=== PATIENT | male | born 2000 | race Caucasian/White ===

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

== ENCOUNTER 2023-05-22 11:15 | Outpatient (RCR) | payer OTHER, MEDICAID, SELFPAY ==
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
== END 2023-06-06 13:59 | disposition home or self-care (01) ==
LOC: SP 11:15
PROVIDERS: Family Provider Family Medicine; PCP Family Medicine; Referring Provider Physical Medicine & Rehabilitation Brain Injury Medicine; Visit Provider Physical Medicine & Rehabilitation Brain Injury Medicine
DX: G31.89 Other specified degenerative diseases of nervous system (principal); F09 Unspecified mental disorder due to known physiological condition; S06.9XAS Unspecified intracranial injury with loss of consciousness status unknown, sequela; S06.30AD Unspecified focal traumatic brain injury with loss of consciousness status unknown, subsequent encounter
CPT/HCPCS: 92507; 92523

== ENCOUNTER → 2024-06-21 09:09 | Outpatient (CLI) | payer OTHER, MEDICAID, SELFPAY ==
[2024-06-21 10:13] LABS: Add Manual Diff / Slide Review NO; Basophils Absolute Auto 0 /uL (0-100); Basophils Percent Auto 0.3 % (0-2); Eosinophils Absolute Auto 100 /uL (0-450); Eosinophils Percent Auto 2.5 % (2-4); Hematocrit 44.6 % (41-53); Hemoglobin 14.7 g/dL (13.5-17.5); Lymphocytes Absolute Auto 1500 /uL (1100-4500); Lymphocytes Percent Auto 30.3 % (25-40); Mean Corpuscular Hemoglobin 26.1 PG (26-34); Mean Corpuscular Volume 79.2 fL (80-100); Monocytes Absolute Auto 400 /uL (0-900); Monocytes Percent Auto 7.6 % (3-14); Neutrophils Absolute Auto 3000 /uL (1500-7000); Neutrophils Percent Auto 59.3 % (50-75); Platelet Count 189 X10^3/uL (150-400); Red Blood Cell Count 5.63 X10^6/uL (4.5-5.9); Red Cell Distribution Width 16.3 % (11.6-14.8)
[2024-06-21 10:31] LABS: Alanine Aminotransferase 90 IU/L (<50); Albumin 4.7 g/dL (3.5-5.0); Albumin Globulin Ratio 1.9 (1.0-2.8); Alkaline Phosphatase 74 U/L (38-126); Aspartate Aminotransferase 56 IU/L (17-59); Bilirubin Total 0.8 mg/dL (0.2-1.3); Blood Urea Nitrogen 15 mg/dL (9-20); Calcium 9.5 mg/dL (8.4-10.2); Carbon Dioxide 25 mmol/L (22-32); Chloride 104 mmol/L (98-107); Estimated Glomerular Filt Rate > 60 mL/min (>60); Globulin 2.5 g/dL (1.7-4.1); Glucose 61 mg/dL (70-100); HEMOLYSIS 21 (0-50); Sodium 139 mmol/L (137-145); Total Protein 7.2 g/dL (6.3-8.2)
== END ==
LOC: LAB 09:10
PROVIDERS: Family Provider Family Medicine; PCP Family Medicine; Referring Provider Family Medicine; Visit Provider Family Medicine
DX: R10.31 Right lower quadrant pain (principal)
CPT/HCPCS: 36415; 80053; 85025

== ENCOUNTER → 2024-08-19 17:16 | Outpatient (CLI) | payer OTHER, SELFPAY ==
--- NOTE | 2024-08-19 17:18 | DI.RAD.S_ITS ---
PROCEDURE: XR KUB INDICATIONS: Lower abdominal pain; dysuria TECHNIQUE: One view of the abdomen acquired. COMPARISON: None. FINDINGS: Stool gas pattern: Normal-no evidence of ileus or obstruction. No free intraperitoneal or extraperitoneal air. No gross evidence of ascites Soft tissues: No abnormal calcifications. No soft tissue masses. Organs: There appears to be mild splenomegaly. 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 Suggest abdominal ultrasound. No acute disease. Dictated by: Enrique Gutiérrez M.D. on 08/20/2024 at 12:00 Approved by: Enrique Gutiérrez M.D. on 08/20/2024 at 12:01
== END ==
PROVIDERS: Family Provider Family Medicine; PCP Family Medicine; Referring Provider Physician Assistant; Visit Provider Physician Assistant
DX: R10.30 Lower abdominal pain, unspecified (principal); R30.0 Dysuria
CPT/HCPCS: 74018

== ENCOUNTER → 2024-08-21 14:18 | Outpatient (CLI) | payer OTHER, SELFPAY ==
--- NOTE | 2024-08-21 14:19 | DI.US.S_ITS ---
PROCEDURE: US ABDOMEN LIMITED INDICATIONS: POSSIBLE SPLENOMEGALY ON XR TECHNIQUE: Real-time focused scanning was performed of the abdomen, with image documentation. COMPARISON: None. FINDINGS: Spleen is enlarged measuring 14.9 x 6.1 x 14.5 cm with a volume of 689 cc. IMPRESSION: Splenomegaly as above. Dictated by: Tom Mcneil M.D. on 08/21/2024 at 19:49 Approved by: Tom Mcneil M.D. on 08/21/2024 at 19:50
== END ==
PROVIDERS: Family Provider Family Medicine; PCP Family Medicine; Referring Provider Physician Assistant; Visit Provider Physician Assistant
DX: R10.12 Left upper quadrant pain (principal); R10.30 Lower abdominal pain, unspecified; R93.5 Abnormal findings on diagnostic imaging of other abdominal regions, including retroperitoneum; R16.1 Splenomegaly, not elsewhere classified; G89.29 Other chronic pain
CPT/HCPCS: 76705

== ENCOUNTER → 2024-08-22 14:01 | Outpatient (CLI) | payer OTHER, SELFPAY ==
[2024-08-22 15:48] LABS: Monotest Negative (Negative)
[2024-08-22 16:09] LABS: Hematocrit 45.8 % (41-53); Hemoglobin 15.4 g/dL (13.5-17.5); Mean Corpuscular HGB Conc 33.7 % (30-36); Mean Corpuscular Hemoglobin 26.9 PG (26-34); Mean Corpuscular Volume 79.7 fL (80-100); Platelet Count 193 X10^3/uL (150-400); Red Blood Cell Count 5.74 X10^6/uL (4.5-5.9); Red Cell Distribution Width 14.6 % (11.6-14.8); White Blood Cell Count 5.6 X10^3/uL (4.5-11.0)
[2024-08-22 16:10] LABS: Appearance Urine UA CLEAR; Bilirubin Urine UA NEGATIVE (NEGATIVE); Color Urine UA YELLOW; Glucose Urine UA NEGATIVE (Negative); Ketones Urine UA NEGATIVE (NEGATIVE); Leukocyte Esterase Urine UA NEGATIVE (NEGATIVE); Nitrite Urine UA NEGATIVE (Negative); Occult Blood Urine UA NEGATIVE (Negative); Protein Urine UA NEGATIVE (Negative); Specific Gravity Urine UA <=1.005 (1.000-1.035); Urobilinogen Urine UA 0.2 E.U./dL (0.2); pH Urine UA 6.5 (4.5-8.0)
[2024-08-22 16:11] LABS: Alanine Aminotransferase 31 IU/L (<50); Albumin 4.9 g/dL (3.5-5.0); Albumin Globulin Ratio 1.8 (1.0-2.8); Alkaline Phosphatase 65 U/L (38-126); Aspartate Aminotransferase 31 IU/L (17-59); Bilirubin Total 0.8 mg/dL (0.2-1.3); Bilirubin Unconjugated 0.5 mg/dL (0.0-1.1); Globulin 2.8 g/dL (1.7-4.1); HEMOLYSIS < 15 (0-50); Total Protein 7.7 g/dL (6.3-8.2)
[2024-08-22 16:30] LABS: Bacteria Urine Occasional (0-1); Culture Indicated Urine Cult Not Indicated; RBC Urine None Seen (0-5/HPF); Squamous Epithelial Cell Urine 0-1 /HPF (0-5/HPF); Urine Volume 10mL (spun); WBC Urine 0-1/HPF (0-5/HPF)
[2024-08-22 17:38] LABS: Neutrophils Absolute Manual 3192 /uL (3000-5900); Total Cells Counted 100
[2024-08-22 17:39] LABS: RBC Morphology Normal Morphology
[2024-08-24 05:08] LABS: Hepatitis A Antibody Total Positive (Negative)
== END ==
LOC: LAB 14:02
PROVIDERS: Family Provider Family Medicine; PCP Family Medicine; Referring Provider Physician Assistant; Visit Provider Physician Assistant
DX: R16.1 Splenomegaly, not elsewhere classified (principal); R30.0 Dysuria
CPT/HCPCS: 36415; 80076; 81001; 85025; 86318; 86645; 86705; 86706; 86708; 87522

== ENCOUNTER → 2024-09-03 10:11 | Outpatient (CLI) | payer OTHER, SELFPAY ==
[2024-09-04 23:36] LABS: Hepatitis A Antibody IgM Negative (Negative)
[2024-09-05 04:08] LABS: Immunoglobulin A 95 mg/dL (90-386); Immunoglobulin M, Quantitative 192 mg/dL (20-172)
== END ==
PROVIDERS: Family Provider Family Medicine; PCP Family Medicine; Referring Provider Physician Assistant; Visit Provider Physician Assistant
DX: R16.1 Splenomegaly, not elsewhere classified (principal); R50.9 Fever, unspecified
CPT/HCPCS: 36415; 82784; 86709

== ENCOUNTER → 2024-09-15 14:21 | Outpatient (CLI) | payer OTHER, SELFPAY ==
[2024-09-15 15:56] LABS: Alanine Aminotransferase 22 IU/L (<50); Alkaline Phosphatase 69 U/L (38-126); Aspartate Aminotransferase 27 IU/L (17-59); BUN Creatinine Ratio 20.2 (6-22); Bilirubin Total 0.5 mg/dL (0.2-1.3); Blood Urea Nitrogen 17 mg/dL (9-20); Calcium 9.6 mg/dL (8.4-10.2); Carbon Dioxide 28 mmol/L (22-32); Chloride 101 mmol/L (98-107); Estimated Glomerular Filt Rate > 60 mL/min (>60); Glucose 84 mg/dL (70-99); HEMOLYSIS < 15 (0-50); Potassium 4.2 mmol/L (3.4-5.1); Sodium 140 mmol/L (137-145)
[2024-09-15 15:58] LABS: Albumin 4.7 g/dL (3.5-5.0); Albumin Globulin Ratio 1.8 (1.0-2.8); Globulin 2.6 g/dL (1.7-4.1); Total Protein 7.3 g/dL (6.3-8.2)
== END ==
PROVIDERS: Family Provider Family Medicine; PCP Family Medicine; Referring Provider Physical Medicine & Rehabilitation Brain Injury Medicine; Visit Provider Physical Medicine & Rehabilitation Brain Injury Medicine
DX: S06.9X9A Unspecified intracranial injury with loss of consciousness of unspecified duration, initial encounter (principal); R74.01 Elevation of levels of liver transaminase levels
CPT/HCPCS: 36415; 80053

== ENCOUNTER 2024-09-15 15:21 | Emergency (ER) | payer OTHER, SELFPAY ==
[2024-09-15] VITALS (12 sets, daily range): BP systolic 91–144; BP diastolic 52–75; PULSE 98–112; RESP 18; TEMP 36.9; O2SAT 97–100; BMI 23.6
[2024-09-15 15:44] LABS: Add Manual Diff / Slide Review NO; Basophils Absolute Auto 100 /uL (0-100); Basophils Percent Auto 0.6 % (0-2); Eosinophils Absolute Auto 100 /uL (0-450); Eosinophils Percent Auto 1.8 % (2-4); Hematocrit 48.4 % (41-53); Hemoglobin 16.7 g/dL (13.5-17.5); Lymphocytes Absolute Auto 1400 /uL (1100-4500); Mean Corpuscular HGB Conc 34.6 % (30-36); Mean Corpuscular Hemoglobin 27.5 PG (26-34); Mean Corpuscular Volume 79.6 fL (80-100); Monocytes Absolute Auto 700 /uL (0-900); Monocytes Percent Auto 8.4 % (3-14); Neutrophils Absolute Auto 5900 /uL (1500-7000); Neutrophils Percent Auto 72.2 % (50-75); Platelet Count 179 X10^3/uL (150-400); Red Blood Cell Count 6.08 X10^6/uL (4.5-5.9); Red Cell Distribution Width 15.2 % (11.6-14.8); White Blood Cell Count 8.1 X10^3/uL (4.5-11.0)
[2024-09-15 15:55] LABS: Alanine Aminotransferase 26 IU/L (<50); Albumin 5.1 g/dL (3.5-5.0); Albumin Globulin Ratio 1.5 (1.0-2.8); Alkaline Phosphatase 67 U/L (38-126); Aspartate Aminotransferase 36 IU/L (17-59); BUN Creatinine Ratio 20.7 (6-22); Bilirubin Total 0.7 mg/dL (0.2-1.3); Blood Urea Nitrogen 18 mg/dL (9-20); Calcium 9.7 mg/dL (8.4-10.2); Carbon Dioxide 30 mmol/L (22-32); Chloride 100 mmol/L (98-107); Estimated Glomerular Filt Rate > 60 mL/min (>60); Globulin 3.5 g/dL (1.7-4.1); Glucose 86 mg/dL (70-99); HEMOLYSIS 47 (0-50); Lipase 40 U/L (23-300); Potassium 4.3 mmol/L (3.4-5.1); Sodium 140 mmol/L (137-145); Total Protein 8.6 g/dL (6.3-8.2)
--- NOTE | 2024-09-15 16:16 | DI.CT.S_ITS ---
PROCEDURE: CT ABDOMEN PELVIS W CON INDICATIONS: pain all over with enlarged spleen TECHNIQUE: After the administration of intravenous contrast, axial sections acquired from the lung bases to the pubic symphysis. Coronal and sagittal reformats were performed. For radiation dose reduction, the following was used: automated exposure control, adjustment of mA and/or kV according to patient size. COMPARISON: [facility], CR, XR KUB, 08/19/2024, 17:20. [facility], US, US ABDOMEN LIMITED, 08/21/2024, 14:37. FINDINGS: Image quality: Diagnostic. Lower Chest: No significant findings. ABDOMEN: Liver: No solid mass. Gallbladder: No radiopaque gallstones or wall thickening. Biliary ducts: No biliary dilation. Pancreas: No ductal dilation. Spleen: Spleen measures 13.7 cm. Adrenal Glands: No adrenal nodules. Kidneys and Ureters: No hydronephrosis. No solid mass. No complex renal cystic lesion which requires follow up. Stomach and Bowel: There is incomplete distention and subsequent appearance of thickening predominantly within the left and transverse colon. Very minimal inflammatory changes present particularly adjacent to the transverse colon with mild adjacent fluid.. Presumed peritoneal drain. Peritoneum: Mild fluid is present in the abdomen pelvis including anterior to the transverse colon and dependent pelvis. Ventral Wall: No significant ventral hernia. Abdominal Nodes: No retroperitoneal or mesenteric adenopathy by size criteria. Vessels: Aorta and inferior vena cava are normal in size. PELVIS: Pelvic Organs: Unremarkable. Bladder: No bladder wall thickening, accounting for underdistention. Pelvic Nodes: No enlarged lymph nodes. Miscellaneous: No inguinal hernias are seen. Bones: No aggressive osseous abnormality. IMPRESSION: Mild fluid within the abdomen pelvis as above. Mild appearance thickening of the particularly the transverse colon with adjacent fluid. Colitis cannot be excluded. Dictated by: Zully Waddell M.D. on 09/15/2024 at 16:37 Approved by: Zully Waddell M.D. on 09/15/2024 at 16:43
[2024-09-15 16:28] LABS: Lactate (Lactic Acid) 1.2 mmol/L (0.7-2.1)
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
[2024-09-15] MEDS: SODIUM CHLORIDE 0.9% 1,000 ML 1000 ML IV (18:48)
[2024-09-15 19:12] LABS: Lactate (Lactic Acid) 0.8 mmol/L (0.7-2.1)
[2024-09-15] MEDS: PIPERACILLIN/TAZO 4.5 GM in SODIUM CHLORIDE 0.9% 100 ML IV (19:14)
== END 2024-09-15 20:13 | disposition home or self-care (01) ==
PROVIDERS: Emergency Medicine; Emergency Provider Emergency Medicine; Family Provider Family Medicine; PCP Family Medicine
DX: K52.9 Noninfective gastroenteritis and colitis, unspecified (principal)
CPT/HCPCS: 36415; 74177; 80053; 81003; 83605; 83690; 85025; 87040; 96365; 99284; J2543; Q9967

== ENCOUNTER → 2024-10-03 13:39 | Outpatient (CLI) | payer OTHER, SELFPAY ==
[2024-10-03 14:56] LABS: Erythrocyte Sedimentation Rate 6 MM/HR (0-15)
[2024-10-03 15:17] LABS: C-Reactive Protein Quant 2.3 mg/dL (<1.0)
== END ==
PROVIDERS: Family Provider Family Medicine; PCP Family Medicine; Referring Provider Family Medicine; Visit Provider Family Medicine
DX: K52.9 Noninfective gastroenteritis and colitis, unspecified (principal); R16.1 Splenomegaly, not elsewhere classified; R10.9 Unspecified abdominal pain
CPT/HCPCS: 36415; 85651; 86140